=== PATIENT | male | born 1980 | race Caucasian/White ===

== ENCOUNTER 2018-02-17 08:57 | Emergency (ER) | payer BC, SELFPAY ==
[2018-02-17 08:59] VITALS: BP 128/80; PULSE 71; RESP 16; TEMP 36.9; O2SAT 98; BMI 23.7
--- NOTE | 2018-02-17 09:06 | ED.VISSUMM ---
- ER Visit Summary Date of Service: 02/17/18 Chief Complaint: Difficulty hearing History of Present Illness: The patient is a 37 M presents with difficulty hearing in both ears for several days. It initially started in his left ear. He felt like it was somewhat clogged so he attempted to clean it but then his ear canal started bleeding. He now is having trouble hearing from his right ear as well. No recent barotrauma. No facial droop, slurred speech, or other symptoms. Physical Examination: Within normal limits. He is not in distress. He has cerumen impaction bilaterally. There is an abrasion on the left ear canal. No active or brisk bleeding. No facial droop. Pupils equal and reactive. Neck supple. Heart tones regular without murmur. Lungs clear bilaterally. Abdomen is soft and nontender. No focal or lateralizing neuro findings. Test Results: None Emergency Department Course and Treatment: Debrox was instilled in both ears. He was irrigated bilaterally and had complete resolution of his hearing difficulty. He does have abrasions bilaterally from attempting to clean his ears at home but no active bleeding. He was referred to ENT for close follow-up and will return if worse. Treatment Plan: Follow-up with ENT Disposition: Home stable condition Impression: She will encounter cerumen impaction bilaterally This note was generated with [employer] dictation software. It may contain incorrect words, spelling, and punctuation that were not noted in review of the chart prior to signing ED Disposition - Plan for ED Patient: Chief Complaint: Ear Problem Instructions: ED Cerumen Impaction Treated Referrals: Nick Albarado MD [STAFF PHYSICIAN] -
--- NOTE | 2018-02-17 09:12 | ED.DCSUM_ITS ---
- ER Visit Summary Date of Service: 02/17/18 Chief Complaint: Difficulty hearing History of Present Illness: The patient is a 37 M presents with difficulty hearing in both ears for several days. It initially started in his left ear. He felt like it was somewhat clogged so he attempted to clean it but then his ear canal started bleeding. He now is having trouble hearing from his right ear as well. No recent barotrauma. No facial droop, slurred speech, or other symptoms. Physical Examination: Within normal limits. He is not in distress. He has cerumen impaction bilaterally. There is an abrasion on the left ear canal. No active or brisk bleeding. No facial droop. Pupils equal and reactive. Neck supple. Heart tones regular without murmur. Lungs clear bilaterally. Abdomen is soft and nontender. No focal or lateralizing neuro findings. Test Results: None Emergency Department Course and Treatment: Debrox was instilled in both ears. He was irrigated bilaterally and had complete resolution of his hearing difficulty. He does have abrasions bilaterally from attempting to clean his ears at home but no active bleeding. He was referred to ENT for close follow- up and will return if worse. Treatment Plan: Follow-up with ENT Disposition: Home stable condition Impression: She will encounter cerumen impaction bilaterally This note was generated with [employer] dictation software. It may contain incorrect words, spelling, and punctuation that were not noted in review of the chart prior to signing ED Disposition - Plan for ED Patient: Chief Complaint: Ear Problem Instructions: ED Cerumen Impaction Treated Referrals: Nick Albarado MD [STAFF PHYSICIAN] -
[2018-02-17] MEDS: Carbamide Peroxide 15 ML Bottle 5 DRP OTIC (09:18)
== END 2018-02-17 10:37 | disposition home or self-care (01) ==
PROVIDERS: Emergency Provider Emergency Medicine; Family Provider Family Medicine; PCP Family Medicine
DX: H61.23 Impacted cerumen, bilateral (principal)
CPT/HCPCS: 99282

== ENCOUNTER 2019-11-04 20:59 | Emergency (ER) | payer BC, SELFPAY ==
[2019-11-04 21:00] VITALS: BP 127/89; PULSE 74; RESP 16; TEMP 36.6; O2SAT 99; BMI 23.8
--- NOTE | 2019-11-04 21:28 | RAD_ITS ---
STUDY: X-RAY - LEFT TIBIA AND FIBULA REASON FOR EXAM: Male, 38 years old. Laceration TECHNIQUE: 2 view(s) of the tibia and fibula were obtained. COMPARISON: None. FINDINGS: There is no evidence of fracture or dislocation. There are no significant degenerative changes. There are no radiodense foreign bodies. There is soft tissue swelling noted overlying the anterior tibia. RAD/Tibia & Fibula 2 Views IMPRESSION: No fracture or dislocation. Soft tissue swelling overlying the anterior tibia. Electronically Signed: Camden Silverio, at 21:39 EST Tel , Service support ,
--- NOTE | 2019-11-04 22:40 | ED.VISSUMM ---
- ER Visit Summary Date of Service: 11/04/19 Chief Complaint: [Laceration left leg] History of Present Illness: The patient is a 38 M [presents to the emergency department with laceration to his left leg that occurred around 7:30 PM. Patient states that he was helping his [id number] put on a door and the [id number] was using a knife to try to pry 1 of the hinges and dropped a knife which then struck him on the left leg lacerating his leg. Patient is up-to-date on tetanus. Patient has no medical history.] Physical Examination: [Left leg-patient has a 1.5 cm laceration that is horizontal over the mid bryant over the tibialis anterior. Patient has normal range of motion of the foot and plantarflexion as well as dorsiflexion. Neurovascularly intact.] Test Results: [X-rays of the left tib-fib obtained showed no evidence of foreign body within the wound or bony injury.] Emergency Department Course and Treatment: [Laceration repair-wound sterilely draped and prepped. Wound cleansed with Shur-Clens and irrigated with copious saline. Using 1% lidocaine total of 3 cc used to anesthetize the area. Using 5-0 nylon one single ruptured sutures placed with good wound edge approximation. Patient tolerated procedure well.] Treatment Plan: [Patient have suture removal in 10 days. Patient to return if increasing pain, redness, swelling, purulent drainage, or conditions worsen anyway.] Disposition: [Discharged home in stable condition.] Impression: [Left leg laceration 1.5 cm-simple repair] This note was generated with [employer] dictation software. It may contain incorrect words, spelling, and punctuation that were not noted in review of the chart prior to signing ED Disposition - Plan for ED Patient: Referrals: Anders Kaplan MD [Primary Care Provider] -
--- NOTE | 2019-11-04 22:42 | ED.DEP ---
ED Disposition - Plan for ED Patient: Instructions: LACERATION, Extrem (Suture, Staple or Tape) Referrals: Anders Kaplan MD [Primary Care Provider] - 10 Day for suture removal
[2019-11-04 22:51] VITALS: BP 125/89; PULSE 70; RESP 16; O2SAT 98
== END 2019-11-04 22:53 | disposition home or self-care (01) ==
PROVIDERS: Emergency Provider Emergency Medicine; Family Provider Family Medicine; PCP Family Medicine
DX: S81.812A Laceration without foreign body, left lower leg, initial encounter (principal); W22.8XXA Striking against or struck by other objects, initial encounter; Y92.9 Unspecified place or not applicable; Y99.9 Unspecified external cause status
CPT/HCPCS: 12001; 73590; 99284; A4216

== ENCOUNTER 2021-11-21 15:21 | Emergency (ER) | payer BC, SELFPAY ==
[2021-11-21 15:21] VITALS: BP 130/88; PULSE 90; RESP 17; TEMP 36.9; O2SAT 100; BMI 26.4
--- NOTE | 2021-11-21 15:37 | ED.RN ---
pt verbalizing throat feels scratchy. face continues to have visibly increasing swelling. dr goyal notified
--- NOTE | 2021-11-21 15:50 | EX.ED.DYSGE1 ---
HPI History of Present Illness Chief Complaint: Allergic Reaction Informant: patient and spouse/S.O. Narrative Narrative: 41-year-old male presenting to the emergency department concerns for allergic reaction. Patient states that yesterday he got in the shower and used a new body wash sent. He states that while showering he began to feel nauseated. Later at dinner he states that he began to have lip swelling and swelling around his eyes. He went to the store and bought some Benadryl which seemed to help. He took a shower when he got home last night using a different body wash but the same washcloth. This morning he notes that whenever the Benadryl wears off he continues to have swelling of his hands and his feet and now has some urticaria on his abdomen and arms. PFSH PFSH Medical History no medical history no medical history Home Medications famotidine 20 mg PO BID #9 tablet 11/21/21 [Rx Last Taken Unknown] prednisone 60 mg PO DAILY #12 tablet 11/21/21 [Rx Last Taken Unknown] Allergy/AdvReac Type Severity Reaction Status Date / Time No Known Allergies Allergy Verified 11/21/21 15:26 Surgical History no surgical history no surgical history Social History (Updated 11/21/21 @ 15:[address] Danny Shah, DO) current gender identity: male Smoking Status: Former smoker ROS ROS ED Constitutional Constitutional ED: Denies chills, fever(s) or weight loss Eyes Eyes: Denies change in vision or diplopia ENT ENT ED: Denies ear pain, rhinorrhea or sore throat Cardiovascular Cardiovascular: Denies chest pain, orthopnea, palpitations or racing heartbeat Respiratory/Chest Respiratory/Chest: Denies cough, dyspnea or orthopnea Gastrointestinal Gastrointestinal: Reports nausea; Denies abdominal pain, diarrhea or vomiting Genitourinary Genitourinary ED: Denies dysuria, hematuria or urinary frequency Musculoskeletal Musculoskeletal: Denies arthralgias or myalgias Integumentary Reports rash and other Details: Hand and feet swelling. ; Denies abscess Neurologic Neurologic: Denies headache(s) or weakness Psychiatric Psychiatric: Denies anxiety, depression, suicidal ideation or suicidal thoughts Endocrine Endocrinology: Denies polydipsia, polyphagia or polyuria Allergic/Immunologic Allergic/Immunologic ED: Denies mouth swelling, tongue swelling or urticaria EXAM Physical Exam Const Vital Signs: 11/21/21 15:21 Temperature 98.4 F Temperature Source Oral Pulse Rate 90 Respiratory Rate 17 Blood Pressure 130/88 H Blood Pressure Mean 102 Pulse Ox 100 Oxygen Delivery Method Room Air Positive well nourished and well developed General Appearance ED: well developed HEENT Reports normocephalic, head/scalp atraumatic, TM's clear and moist mucous membranes HEENT Narrative: No tongue or uvular swelling Negative for trauma Tympanic Membrane ED: Yes TM's clear Eyes PERRL and EOMs intact bilaterally Neck no lymphadenopathy, supple and no JVD Resp normal respiratory effort and clear to auscultation bilaterally Cardio regular rate, regular rhythm and no murmurs GI normal to inspection, nondistended, normoactive bowel sounds and non-tender Palpation: soft Back/Spine no CVA tenderness and normal ROM Extremity normal to inspection General Extremety ED: Negative for edema General Extremity: Negative for edema Neuro oriented x3 and CN's II-XII intact bilaterally Sensorium / Orientation: alert Motor Exam: strength 5/5 throughout Psych mental status grossly normal Mood & Affect: Negative for depressed or tearful Skin no wounds Skin Narrative: There is urticaria noted on left arm and the abdomen MDM MDM MDM Narrative Medical decision making narrative: Patient clinically appears well. He has evidence of urticaria and most likely an allergic reaction possibly due to the body wash. He should continue Benadryl and add twice daily Pepcid as well as prednisone. Return if worsening or concerns Discharge Plan Triage Chief Complaint: Allergic Reaction ED Provider: Danny Shah Dx/Rx/DC Orders Clinical Impression: Acute allergic reaction Instructions: ED General Allergic Reactions Prescriptions: New prednisone 20 MG tablet 60 mg PO DAILY Qty: 12 RF: 0 famotidine [famotidine] 20 MG tablet 20 mg PO BID Qty: 9 RF: 0 Primary Care Provider: Anders Kaplan Referrals: Anders Kaplan MD [Primary Care Provider] - As Needed Activity Restrictions/Additional Instructions: Continue Benadryl 25 mg every 6 hours. Pepcid twice daily x5 days Prednisone x5 days. You had your first dose today so this should be started tomorrow morning. Disposition Disposition: Home, Self Care
[2021-11-21] MEDS: Famotidine 20 MG Tablet PO (16:03)
[2021-11-21] MEDS: DiphenhydrAMINE 25 MG Capsule PO (16:03)
[2021-11-21] MEDS: predniSONE 20 MG Tablet 60 MG PO (16:03)
[2021-11-21 16:05] VITALS: BP 126/86; PULSE 78; RESP 15; O2SAT 99
== END 2021-11-21 16:08 | disposition home or self-care (01) ==
LOC: ED 15:56
PROVIDERS: Emergency Provider Emergency Medicine; PCP Family Medicine; Visit Provider Emergency Medicine
DX: T78.40XA Allergy, unspecified, initial encounter (principal); Y93.E1 Activity, personal bathing and showering; Y99.8 Other external cause status; Z87.891 Personal history of nicotine dependence
CPT/HCPCS: 99284; A4216